=== PATIENT | female | born 1990 | race Caucasian/White ===

== ENCOUNTER → 2016-11-28 | Outpatient (CLI) | payer OTHER ==
[~2016-11-28] MED LIST: BCPILLS PO; FERR1TAB23; HYDR-3126 PO; MTR600X PO; ONDA4TAB7 SL; PRENTAB26 PO
== END | disposition home or self-care (01) ==
LOC: C.LAB1850 07:24
PROVIDERS: ATTEND Obstetrics & Gynecology
DX: Z34.83 Encounter for supervision of other normal pregnancy, third trimester (principal)

== ENCOUNTER → 2017-01-18 | Outpatient (CLI) | payer OTHER | END | disposition home or self-care (01) | LOC: C.LABSPEC 13:17 | PROVIDERS: ATTEND Obstetrics & Gynecology | DX: Z34.83 Encounter for supervision of other normal pregnancy, third trimester (principal) ==

== ENCOUNTER 2017-02-10 03:00 | Inpatient (IN) | payer OTHER ==
[~2017-02-10] VITALS: Ht 162.6 cm; Wt 92.5 kg
[~2017-02-10 03:00] MED LIST changes: -FERR1TAB23; -PRENTAB26 PO
[2017-02-10] MEDS ORDERED: LACTATED RINGER'S 1000ML 1,000 ML IV PRN (03:23)
[2017-02-10] MEDS ORDERED: FERR1TAB23 (03:38)
[2017-02-10] MEDS ORDERED: PRENTAB26 PO (03:38)
[2017-02-10] MEDS ORDERED: BUTORPHANOL TARTRATE 1 MG/ML VIAL ONE (03:38)
[2017-02-10 03:39] VITALS: Ht 162.6 cm; Wt 92.5 kg
[2017-02-10] MEDS ORDERED: BUTORPHANOL TARTRATE 1 MG/ML VIAL IV PRN (03:45)
[2017-02-10 03:48] LABS: HEMATOCRIT 31.8 % (37-47); MEAN CELL VOLUME 82.8 fL (80-100); MEAN CORPUSCULAR HEMOGLOBIN 27.3 pg (25-34); MEAN PLATELET VOLUME 10.4 fL (7.4-10.4); PLATELET COUNT 322 K/uL (130-400); RED BLOOD COUNT 3.84 M/uL (4.2-5.4)
[2017-02-10] MEDS ORDERED: BUPIVACAINE 0.25% 30 ML VIAL ONE (03:51)
[2017-02-10] MEDS ORDERED: EpHEDrine SULFATE INJ 50 MG/ML AMP ONE (03:52)
[2017-02-10] MEDS ORDERED: FENTANYL 2MCG/ML ROPIV 1.25MG/ML 100ML BAG EPI ONE (03:52)
[2017-02-10] MEDS ORDERED: FENTANYL CITRATE INJ 50 MCG/1 ML 2 ML VIAL ONE (03:52)
[2017-02-10] MEDS: LACTATED RINGER'S 1000ML 1,000 ML IV SCH ×2 (04:30→12:26)
[2017-02-10] MEDS ORDERED: LACTATED RINGER'S 1000ML 500 ML IV PRN ×2 (04:43→08:37)
[2017-02-10] MEDS ORDERED: ONDANSETRON INJ 2 MG/ML 2 ML VIAL IV PRN (04:45)
[2017-02-10] MEDS ORDERED: NALBUPHINE HCL INJ 10 MG/ML AMP IV PRN (04:45)
[2017-02-10] MEDS ORDERED: NALOXONE HCL INJ 0.4 MG/1 ML VIAL/CARP IV PRN (04:45)
[2017-02-10] MEDS ORDERED: DiphenhydrAMINE HCL 50 MG/ML VIAL IV PRN (04:45)
[2017-02-10] MEDS ORDERED: EpHEDrine SULFATE INJ 50 MG/ML AMP IV PRN (04:45)
[2017-02-10] MEDS: FENTANYL 2MCG/ML ROPIV 1.25MG/ML 100ML BAG EPI PRN ×2 (07:02→11:42)
[2017-02-10] MEDS ORDERED: OXYTOCIN 30 UNITS/500ML NSS IV PRN ×2 (08:45→14:00)
[2017-02-10] MEDS ORDERED: LANOLIN OINT EXT PRN ×2 (14:00)
[2017-02-10] MEDS ORDERED: SUPERCREAM 0.870 % 15GM JAR EXT PRN (14:00)
[2017-02-10] MEDS ORDERED: BENZOCAINE 20% AER SPR 82.5 GM CAN EXT PRN (14:00)
[2017-02-10] MEDS ORDERED: ACETAMINOPHEN/CODEINE 300/30MG TAB PO PRN ×2 (14:00)
[2017-02-10] MEDS ORDERED: ACETAMINOPHEN 325 MG TAB PO PRN (14:00)
[2017-02-10] MEDS ORDERED: OXYCODONE/ACETAMINOPHEN 5-325 TAB PO PRN (14:00)
[2017-02-10] MEDS ORDERED: HYDROCORTISONE ACETATE 25 MG SUPP PR PRN (14:00)
--- NOTE | 2017-02-10 14:08 | DELIVERY SUMMARY ---
DATE OF OPERATION: 02/10/2017 VAGINAL DELIVERY NOTE DATE OF DELIVERY: 02/10/2017. Kimberley Tong presented in her second labor at term to labor and delivery, requested epidural anesthesia, received this. Membranes had been ruptured. Group B strep negative and uncomplicated . She progressed quickly, did require Pitocin augmentation however delivered. Initially was in an occiput posterior position but rotated to right occiput anterior at delivery of the head. At this stage mouth and nares were suctioned. There was a loose nuchal cord that was passed over the head. The baby was delivered by gentle traction. No excessive force was used. Easy delivery live vigorous male infant. Cord gasses obtained, cord blood obtained. After this placenta was removed with gentle traction. IV Pitocin started. Estimated blood loss was approximately 100 mL and there was no tearing noted at all. I attest to the content of the Intraoperative Record and any orders documented therein. Any exceptio ns are noted below.
--- NOTE | 2017-02-10 15:03 | Anesthesia Procedure Note ---
Anesthesia Epidural Removal Nt Date & Time Feb 10, 2017 at 15:02 Vital Signs Pain Intensity: 0.0 Notes Mental Status: alert / awake / arousable, participated in evaluation Nausea / Vomiting: adequately controlled Pain: adequately controlled Airway Patency, RR, SpO2: stable & adequate BP & HR: stable & adequate Hydration State: stable & adequate Neuraxial Anesthesia: was administered Anesthetic Complications: no major complications apparent, pt satisfied with anesthetic care Epidural: removed without complications, with tip intact
[2017-02-10 17:00] VITALS: BP 111/68; PULSE 58; TEMP 36.7
[2017-02-10 19:30] VITALS: BP 101/65; PULSE 69; TEMP 36.6
[2017-02-10] MEDS: DOCUSATE SODIUM 100 MG CAP PO SCH (20:44)
[2017-02-11 00:20] VITALS: BP 109/69; PULSE 71; TEMP 36.4
[2017-02-11] MEDS: IBUPROFEN 600 MG TAB PO PRN ×2 (00:22→12:06)
[2017-02-11 03:35] VITALS: BP 104/63; PULSE 50; TEMP 36.5
[2017-02-11 06:30] LABS: HEMATOCRIT 27.2 % (37-47)
--- NOTE | 2017-02-11 06:55 | Progress Note ---
Subjective Feb 11, 2017. Subjective conversation w/ patient, physical exam Ambulation: ambulating normally Voiding: no voiding problems Passing Gas: Yes Diet Tolerance: Regular Diet Lochia: Small Feeding Type: Breast Feeding Review of Systems Constitutional: No chills, No fever Respiratory: No cough, No shortness of breath Cardiac: No chest pain, No claudication Objective Vital Signs Date Time Temp Pulse Resp B/P Pulse Ox O2 Delivery O2 Flow Rate FiO2 02/11/17 03:35 36.5 50 16 104/63 Room Air 02/11/17 00:20 36.4 71 18 109/69 Room Air 02/11/17 00:20 Room Air 02/10/17 19:30 36.6 69 16 101/65 Room Air 02/10/17 19:30 Room Air 02/10/17 17:00 Room Air 02/10/17 17:00 36.7 58 16 111/68 Room Air Physical Exam General Appearance: WELL-APPEARING, NO APPARENT DISTRESS Respiratory/Chest: lungs clear, no respiratory distress Cardiovascular: regular rate, rhythm, no murmur Abdomen: non tender, soft Fundus: Firm, Non-Tender, Relation to Umbilicus (at the umbilicus) Extremities: non-tender, no calf tenderness Laboratory Results Last 24 Hours Test 02/11/17 06:15 Hemoglobin 8.9 g/dL Hematocrit 27.2 % Assessment and Plan Post- (1) Day#: 1 Continue Routine Care: s/p Day 1 - vitals reviewed and wnl - Hgb reviewed 8.9 - Blood: O+, GBS-, Rubella immune - Encourage ambulation, encourage , monitor lochia - Patient doing well clinically - CONTINUE ROUTINE POST- CARE Resident Physician Supervision Note: I was present with Dr. Machuca during the history and exam. I discussed the case with the resident and agree with the findings and plan as documented in the note. Any exceptions or clarifications are listed here: Doing well, wants to go home later today, instructions reviewed. f/u 6wks pp check. Documented By: Sumaya Pozo
--- NOTE | 2017-02-11 06:56 | Discharge Instructions ---
Discharge Instructions Date of Service Feb 11, 2017. Admission Reason for Admission: LABOR Discharge Discharge Diagnosis / Problem: Spontaneous Vaginal Delivery Discharge Goals Goal(s): Routine recovery after delivery Medications Continue Dispensed Medications: supercream, dermaplast, tucks, lansinoh Activity Recommendations Activity Limitations: per Instructions/Follow-up section . Instructions / Follow-Up Instructions / Follow-Up ACTIVITY RECOMMENDATIONS: * Gradual return to full activity over the next 2-3 weeks. * No lifting - nothing heavier than baby over the next 2-3 weeks. * Do not engage in vigorous exercise, sexual activity or sports until cleared by your physician. * Do not drive or operate any motorized equipment until cleared by your physician. * You may shower/bathe daily. MEDICATIONS: For discomfort or pain, you may use Acetaminophen (Tylenol), Ibuprofen (Advil), or Naproxen (Aleve) following the package directions. For constipation you may use Colace following the package directions. BREAST CARE: If you are not breast feeding: * Wear a supportive bra 24 hours a day for one to two weeks. * Avoid stimulating your breasts and nipples as much as possible during the first few weeks after delivery. * When taking a shower, have the warm water hit your back, not breasts. * When your breasts feel full, apply ice packs. Usually three to four times a day helps ease the discomfort. * Take a mild pain medication (Tylenol / Motrin) when you are uncomfortable. If breast feeding: * Use breast milk to lubricate nipples. Lansinoh cream may be used for sore nipples. You do not need to remove cream prior to breast feeding. If using a different brand of cream, check the label for directions regarding removal of cream prior to nursing. * Wear a supportive bra. * If having problems with breasts or breast feeding, call a clinical documentation consultant or your health care provider. EPISIOTOMY CARE: After delivery, if you have an episiotomy (stitches), the following steps will ease discomfort and aid healing. * For the first 24 hours after delivery, place ice packs next to your episiotomy to help reduce swelling. * After the first 24 hour-period, sitz baths, either portable or in the tub, are suggested. A shower with a shower arm sprayed over the episiotomy may be comforting. * Elysia care should be done after each voiding and bowel movement. Squirt warm water from a plastic bottle over the perineum (region of the body between the anus and urinary opening) and pat dry. * Use Dermoplast to ease discomfort. Shake container. [place] directly over the episiotomy. Place a Tucks on a clean sanitary pad next to your episiotomy. SPECIAL CARE INSTRUCTIONS: When you are discharged from the hospital, it is important for you to follow the instructions listed below: * During the first week at home, you should be able to care for yourself and your baby. In addition, the usual light household activities are encouraged. * Limit your activities to the way you feel. Do not try to clean the house or move furniture. Be sensible. * If you actively engage in sports and have done so up until the time of your delivery, you may resume these activities as soon as you feel able. This may take up to one month or even longer. Use good judgment. * Continue to take your vitamins for at least six weeks after the of your baby. * Your diet need not be limited unless you were on a special diet before your delivery. Breast-feeding mothers need around 2500 calories per day and at least 64-80 ounces of fluid per day (8 to 10 glasses). * You should eat foods from the four major food groups. Crash diets or fad diets are to be avoided. Eating lean meats, fresh fruits and vegetables, low-fat dairy products, high fiber foods and a regular exercise program, will help you get back to your pre- weight without putting your health at risk. * Constipation is sometimes a problem after delivery. Take a mild laxative as needed. If breast feeding, Milk of Magnesia is acceptable to use. You may use a suppository or Fleets enema if no episiotomy. * A daily shower or tub bath is suggested. Be sure to thoroughly and gently dry the perineum. * A bloody vaginal discharge will usually continue until around four weeks post . A small amount of bleeding may continue for as long as six weeks. Vaginal discharge changes from the bright red bleeding after delivery to pink then brownish and finally yellowish-pink before becoming white and disappearing. * Bleeding may increase with activity. Your first period may come in 4-8 weeks. If you are breast feeding, your period may be delayed even longer. * [place] (sex) can begin whenever both you and your partner feel comfortable and do not have any form of genital infection. It is recommended that you wait at least six weeks for internal and external healing to occur. If you have questions, please talk to your health care practitioner. A condom should be used to prevent infection and . * Foreplay, gentle intercourse and lubrication is very important the first several times to prevent pain. A water-based lubricant such as K-Y jelly or Astroglide may be used. * If you have RH negative blood and your baby is RH positive, you will receive RHOGAM by injection prior to discharge. The nurse will give you a card to keep with you that has the date and place that you received RHOGAM after delivery. * During your care, you had a Rubella screen done to check for the presence of rubella antibodies in your blood. If your test was negative, you will receive a Rubella vaccine prior to discharge. This vaccine may cause a fever, soreness at the injection site and flu-like symptoms. If these symptoms persist, notify your health care practitioner. is not advised for one month after a Rubella vaccine. * Verbalizes understanding of car seat law as reviewed with patient nursing. * Car Seat hand-out given and reviewed with patient by nursing. * Shaken baby information reviewed with patient by nursing. Call you doctor if: * Heavy bleeding (saturating several pads an hour) or passing clots the size of your fist. * A fever >101 degrees F (38.3 degrees C) on two occasions four hours apart and /or chills. * Unusual pain in the pelvic or vaginal areas. * "Baby Blues" lasting longer than two weeks. If you have any questions or concerns, call your health care practitioner at . FOLLOW UP VISIT: * Please call the office at to schedule a 6 week examination. It is important you keep this appointment. It is important for you to make arrangements for either yearly or twice yearly check-ups thereafter. Current Hospital Diet Patient's current hospital diet: Regular OB Diet Discharge Diet Recommended Diet: Regular Diet Pending Studies Studies pending at discharge: no Medical Emergencies . Who to Call and When: Medical Emergencies: If at any time you feel your situation is an emergency, please call 911 immediately. . Non-Emergent Contact Non-Emergency issues call your: Primary Care Provider, Consultant Dietitian . . "Provider Documentation" section prepared by Crow aMchuca. VTE Core Measure Inpt VTE Proph given/why not?: Treatment not indicated
[2017-02-11] MEDS: DOCUSATE SODIUM 100 MG CAP PO SCH (07:43)
[2017-02-11 07:50] VITALS: BP 100/64; PULSE 53; TEMP 36.4
[2017-02-11] MEDS ORDERED: PRENATAL VITAMIN TAB PO SCH (08:00)
[2017-02-11 12:05] VITALS: BP 102/67; PULSE 53; TEMP 36.3
[2017-02-11 16:00] VITALS: BP_DIAS 67; PULSE 53; TEMP 36.3
[2017-02-11] MEDS ORDERED: BISACODYL 5 MG TABEC PO SCH (20:00)
[2017-02-12] MEDS ORDERED: BISACODYL 10 MG SUPP PR PRN (07:00)
== END 2017-02-11 16:20 | disposition home or self-care (01) | DRG 775 ==
LOC: C.OPB 03:00 → C.LD 03:00 → C.OPB 03:25 → C.OBG 17:05
PROVIDERS: ADMIT Obstetrics & Gynecology; ATTEND Obstetrics & Gynecology
PROC: 10E0XZZ Delivery of Products of Conception, External Approach (ICD-10-PCS; principal; 2017-02-10)
DX: O69.81X0 Labor and delivery complicated by cord around neck, without compression, not applicable or unspecified (principal); Z37.0 Single live birth; Z3A.40 40 weeks gestation of pregnancy

== ENCOUNTER → 2017-06-30 | Outpatient (CLI) | payer OTHER ==
[~2017-06-30] MED LIST changes: -BCPILLS PO; +FERR1TAB23; -HYDR-3126 PO; -MTR600X PO; -ONDA4TAB7 SL; +PRENTAB26 PO
[2017-06-30 10:08] LABS: CHOLESTEROL/HDL RATIO 3.6
== END | disposition home or self-care (01) ==
LOC: C.LAB 07:37
PROVIDERS: ATTEND Student in an Organized Health Care Education/Training Program
DX: Z00.00 Encounter for general adult medical examination without abnormal findings (principal)